=== PATIENT | female | born 1970 | race Two or more races ===

== ENCOUNTER 2018-02-04 19:49 | Emergency (ER) | payer BC ==
[2018-02-04 20:16] VITALS: RESP 20; TEMP 98.3; O2SAT 100
[2018-02-04] MEDS ORDERED: LIDOCAINE HCL 2% (VISCOUS) 20 ML SOL PO ONE (20:31)
[2018-02-04] MEDS ORDERED: PANTOPRAZOLE SODIUM 40 MG/10 ML PDS IV ONE (20:31)
[2018-02-04] MEDS ORDERED: ALUMINUM/MAGNESIUM 30 ML SUS PO ONE (20:31)
[2018-02-04] MEDS ORDERED: LIDOCAINE HCL 2% (VISCOUS) 20 ML SOL ONE (20:33)
[2018-02-04] MEDS ORDERED: ALUMINUM/MAGNESIUM 30 ML SUS ONE (20:33)
[2018-02-04] MEDS ORDERED: SODIUM CHLORIDE 0.9% 1000ML 1,000 ML IV ONE (20:43)
[2018-02-04] MEDS ORDERED: PANTOPRAZOLE SODIUM 40 MG/10 ML PDS ONE (20:44)
[2018-02-04 20:51] LABS: BASOPHILS % (AUTO) 1 % (0-3); EOSINOPHILS % (AUTO) 1 % (0-9); HEMATOCRIT 29 % (35-47); HEMOGLOBIN 8.5 gm/dl (12.0-15.5); LYMPHOCYTES % (AUTO) 23.9 % (10-50); MEAN CORPUSCULAR HEMOGLOBIN 21.9 pg (27.0-32.0); MEAN CORPUSCULAR HGB CONC 29.4 gm/dl (32.0-36.0); MONOCYTES % (AUTO) 11.3 % (0-12)
[2018-02-04 20:53] LABS: MEAN CORPUSCULAR VOLUME 75 fL (81-99)
[2018-02-04 20:58] LABS: ALBUMIN 3.9 gm/dl (3.4-5.0); BILIRUBIN,TOTAL 0.9 mg/dl (0.2-1.0); CALCIUM 8.6 mg/dl (8.5-10.1); CARBON DIOXIDE 24.1 mEq/L (21-32); CREATININE 0.7 mg/dl (0.60-1.00); POTASSIUM 3.3 mMol/L (3.5-5.1)
[2018-02-04 21:02] LABS: ANISOCYTOSIS MOD AMT; POIKILOCYTOSIS SLIGHT AMT
[2018-02-04 21:03] LABS: OVALOCYTES PRESENT
[2018-02-04 22:29] VITALS: BP 122/85; PULSE 92
== END 2018-02-04 22:20 | disposition home or self-care (01) ==
LOC: ED 19:49
DX: K29.70 Gastritis, unspecified, without bleeding (principal)
CPT/HCPCS: 74019; 80053; 82150; 85025; 96365; 96374; 99283; 99284; A9270-GY